=== PATIENT | female | born 1975 | race Hispanic/Latino ===

== ENCOUNTER 2018-07-20 13:56 | Inpatient (IN) | payer SELFPAY ==
[~2018-07-20] VITALS: Ht 162.6 cm; Wt 93.0 kg
[2018-07-20] MEDS ORDERED: BENZONATATE 100 MG CAPSULE PO ONE (15:17)
[2018-07-20] MEDS ORDERED: AZITHROMYCIN 250 MG TABLET PO ONE (15:18)
[2018-07-20] MEDS ORDERED: METHYLPREDNISOLONE SOD SUCC 125MG/2ML VIAL ONE (15:18)
[2018-07-20] MEDS ORDERED: IPRATROPIUM/ALBUTEROL SULFATE 3 ML SOLUTION IH ONE (15:23)
[2018-07-20 15:43] LABS: BASOPHILS % (AUTO) 0.9 % (0.0-5.0); EOSINOPHILS % (AUTO) 17.9 % (0.0-8.0); HEMATOCRIT 41.8 % (36-48); LYMPHOCYTES % (AUTO) 18.6 % (21.0-51.0); MEAN CORPUSCULAR HEMOGLOBIN 30.3 pg (27.0-33.0); MEAN CORPUSCULAR HGB CONC 34.6 g/dL (32.0-36.0); MEAN CORPUSCULAR VOLUME 87.6 fL (79-99); MONOCYTES % (AUTO) 5.4 % (3.0-13.0); NEUTROPHILS % (AUTO) 57.2 % (40.0-77.0); PLATELET COUNT (AUTO) 233 K/uL (130-400); RED BLOOD CELL COUNT(AUTO) 4.77 MIL/uL (4.00-5.50); RED CELL DISTRIBUTION WIDTH 13.3 % (11.0-15.5); WHITE BLOOD COUNT (AUTO) 13.7 K/uL (4.8-10.8)
[2018-07-20 16:03] LABS: B-TYPE NATRIURETIC PEPTIDE < 5 pg/mL (0-100)
[2018-07-20 16:06] LABS: CREATININE 0.8 mg/dL (0.5-1.5); MAGNESIUM 2.1 mg/dL (1.80-2.40); POTASSIUM 3.9 mmol/L (3.5-5.1)
[2018-07-20] MEDS ORDERED: CEFTRIAXONE SODIUM 1 GM ONE (16:31)
[2018-07-20] MEDS ORDERED: SODIUM CHLORIDE 0.9% 100 ML IV ONE (16:31)
[2018-07-20] MEDS ORDERED: ACETAMINOPHEN 325 MG TAB PO PRN (17:15)
[2018-07-20] MEDS ORDERED: ONDANSETRON HCL 4 MG/2 ML VIAL IV PRN (17:15)
[2018-07-20 17:58] VITALS: BP 151/81
[2018-07-20] MEDS: LEVOFLOXACIN 500 MG/D5W 100 ML 100 ML IV SCH (18:36)
[2018-07-20] MEDS: METHYLPREDNISOLONE SOD SUCC 125MG/2ML VIAL IV SCH (18:37)
[2018-07-20] MEDS: MONTELUKAST SODIUM 10 MG TAB PO SCH (18:37)
[2018-07-20] MEDS: CETIRIZINE HCL 5 MG TABLET PO SCH (18:38)
[2018-07-20] MEDS ORDERED: HYDRALAZINE HCL 20 MG/ML VIAL IV PRN (19:00)
[2018-07-20 19:35] VITALS: BP 130/82
[2018-07-20] MEDS: SODIUM CHLORIDE 0.9% 1000ML 1,000 ML IV SCH (19:53)
[2018-07-20] MEDS: BUDESONIDE 0.5 MG/2 ML INH IH SCH (19:58)
[2018-07-20] MEDS: IPRATROPIUM/ALBUTEROL SULFATE 3 ML SOLUTION IH SCH (19:58)
[2018-07-20] MEDS: BENZONATATE 100 MG CAPSULE PO SCH (20:00)
[2018-07-20 20:17] LABS: ABG BASE EXCESS -2.7 mmol/L (-2.0-3.0); ABG HCO3 21.4 mmol/L (21.0-28.0); ABG OXYGEN SATURATION 97.5 % (95.0-99.0); ABG PCO2 36 mmHg (32-45)
[2018-07-20 23:16] VITALS: BP 125/79
[2018-07-21] MEDS: METHYLPREDNISOLONE SOD SUCC 125MG/2ML VIAL IV SCH ×3 (01:07→15:52)
[2018-07-21 03:31] VITALS: BP 128/78
[2018-07-21] MEDS: SODIUM CHLORIDE 0.9% 1000ML 1,000 ML IV SCH (06:22)
[2018-07-21] MEDS: IPRATROPIUM/ALBUTEROL SULFATE 3 ML SOLUTION IH SCH ×3 (06:34→18:31)
[2018-07-21] MEDS: BUDESONIDE 0.5 MG/2 ML INH IH SCH ×2 (06:42→18:43)
[2018-07-21 08:03] VITALS: BP 133/92
[2018-07-21] MEDS: PANTOPRAZOLE SODIUM 40 MG TABLET.DR PO SCH (08:28)
[2018-07-21] MEDS: BENZONATATE 100 MG CAPSULE PO SCH ×3 (08:29→20:31)
[2018-07-21] MEDS: MONTELUKAST SODIUM 10 MG TAB PO SCH (08:29)
[2018-07-21] MEDS: CETIRIZINE HCL 5 MG TABLET PO SCH (08:29)
[2018-07-21] MEDS: ENOXAPARIN SODIUM 40 MG/0.4 ML SYRINGE SQ SCH (08:30)
[2018-07-21 11:01] LABS: HEMATOCRIT 42.2 % (36-48); MEAN CORPUSCULAR HEMOGLOBIN 29.6 pg (27.0-33.0); MEAN CORPUSCULAR HGB CONC 33.7 g/dL (32.0-36.0); MEAN CORPUSCULAR VOLUME 87.9 fL (79-99); PLATELET COUNT (AUTO) 242 K/uL (130-400); RED CELL DISTRIBUTION WIDTH 13.7 % (11.0-15.5)
[2018-07-21 11:09] VITALS: BP 124/79
[2018-07-21 11:13] LABS: CREATININE 0.8 mg/dL (0.5-1.5); POTASSIUM 3.6 mmol/L (3.5-5.1)
[2018-07-21] MEDS: CEFTRIAXONE SODIUM 1 GM IVP SCH (15:41)
[2018-07-21] MEDS: LEVOFLOXACIN 500 MG/D5W 100 ML 100 ML IV SCH (15:51)
[2018-07-21 16:20] VITALS: BP 112/72
[2018-07-21 19:35] VITALS: BP 131/76
[2018-07-22 00:37] VITALS: BP 126/87
[2018-07-22] MEDS: METHYLPREDNISOLONE SOD SUCC 125MG/2ML VIAL IV SCH ×2 (01:05→08:46)
[2018-07-22 04:25] VITALS: BP 124/77
[2018-07-22 06:06] LABS: BASOPHILS % (AUTO) 0.2 % (0.0-5.0); HEMATOCRIT 41.5 % (36-48); LYMPHOCYTES % (AUTO) 5.4 % (21.0-51.0); MEAN CORPUSCULAR HEMOGLOBIN 29.7 pg (27.0-33.0); MEAN CORPUSCULAR HGB CONC 33.4 g/dL (32.0-36.0); MEAN CORPUSCULAR VOLUME 88.9 fL (79-99); NEUTROPHILS % (AUTO) 92.4 % (40.0-77.0); PLATELET COUNT (AUTO) 271 K/uL (130-400); RED BLOOD CELL COUNT(AUTO) 4.67 MIL/uL (4.00-5.50); RED CELL DISTRIBUTION WIDTH 13.4 % (11.0-15.5); WHITE BLOOD COUNT (AUTO) 25.4 K/uL (4.8-10.8)
[2018-07-22 06:14] LABS: CREATININE 0.7 mg/dL (0.5-1.5); POTASSIUM 4.3 mmol/L (3.5-5.1)
[2018-07-22] MEDS: IPRATROPIUM/ALBUTEROL SULFATE 3 ML SOLUTION IH SCH ×2 (06:35→11:04)
[2018-07-22] MEDS: BUDESONIDE 0.5 MG/2 ML INH IH SCH (06:45)
[2018-07-22 08:01] VITALS: BP 131/72
[2018-07-22] MEDS: CETIRIZINE HCL 5 MG TABLET PO SCH (08:47)
[2018-07-22] MEDS: PANTOPRAZOLE SODIUM 40 MG TABLET.DR PO SCH (08:47)
[2018-07-22] MEDS: ENOXAPARIN SODIUM 40 MG/0.4 ML SYRINGE SQ SCH (08:47)
[2018-07-22] MEDS: BENZONATATE 100 MG CAPSULE PO SCH ×2 (08:47→14:00)
[2018-07-22] MEDS: MONTELUKAST SODIUM 10 MG TAB PO SCH (08:47)
[2018-07-22 11:41] VITALS: BP 113/74
[2018-07-22] MEDS: CEFTRIAXONE SODIUM 1 GM IVP SCH (15:00)
== END 2018-07-22 16:35 | disposition home or self-care (01) | DRG 203 ==
LOC: EDH 13:56 → EDHIP 13:57 → 4BH 17:40
PROVIDERS: ADMIT Internal Medicine; ATTEND Internal Medicine
PROC: 3E0234Z Introduction of Serum, Toxoid and Vaccine into Muscle, Percutaneous Approach (ICD-10-PCS; principal; 2018-07-20)
DX: J45.901 Unspecified asthma with (acute) exacerbation (principal); D72.829 Elevated white blood cell count, unspecified; Z90.710 Acquired absence of both cervix and uterus; Z90.721 Acquired absence of ovaries, unilateral; Z88.5 Allergy status to narcotic agent; Z23 Encounter for immunization
CPT/HCPCS: 36415; 36600; 71046; 80048; 82103; 82803; 83735; 83880; 84484; 85025; 85027; 87804; 94640; 94664; A4218; G0008; J0696; J1650; J1956; J2930; J7030; Q2038

== ENCOUNTER 2021-06-27 07:51 | Emergency (ER) | payer SELFPAY ==
[~2021-06-27] VITALS: Ht 167.6 cm; Wt 86.2 kg
[2021-06-27 07:54] VITALS: BP 147/94
[2021-06-27] MEDS: KETOROLAC 60 MG VIAL (30MG/ML) ONE (08:59)
[2021-06-27] MEDS: KETOROLAC 60 MG VIAL (30MG/ML) IM SCH (09:00)
[2021-06-27] MEDS: LIDOCAINE 2%-EPI 1:200,000 20 ML VIAL IJ SCH (09:00)
[2021-06-27] MEDS: LIDOCAINE HCL 400MG/20ML VIAL ONE (09:01)
[2021-06-27] MEDS ORDERED: SULFAMETHOX-TMP DS 800/160 TAB PO SCH (10:00)
[2021-06-27] MEDS: SULFAMETHOX-TMP DS 800/160 TAB ONE (10:05)
[2021-06-27] MEDS ORDERED: IBUP-2070 PO (10:09)
[2021-06-27] MEDS ORDERED: SULF1TAB42 PO (10:09)
[2021-06-27 11:09] VITALS: BP 129/87
== END 2021-06-27 11:10 | disposition home or self-care (01) ==
LOC: EDH 07:51
DX: L02.416 Cutaneous abscess of left lower limb (principal); J45.909 Unspecified asthma, uncomplicated; Z88.5 Allergy status to narcotic agent; Z79.1 Long term (current) use of non-steroidal anti-inflammatories (NSAID)
CPT/HCPCS: 10061; 82948; 96372; 99283; J1885; J3490